=== PATIENT | female | born 1960 | race Caucasian/White ===

== ENCOUNTER → 2019-01-15 | Day surgery (SDC) | payer OTHER ==
[~2019-01-15] MED LIST: PROTECT PLUS S1 EACH PO; SYNTHROID50 MCG PO; TAMOXIFEN CITRA10 MG PO; ULTRACET PO; VITAMIN D2000 UNIT PO
== END | disposition home or self-care (01) ==
LOC: ADM 01-10 13:45 → CIR.AMB 08:45
DX: N72 Inflammatory disease of cervix uteri (principal)

== ENCOUNTER 2020-02-18 06:55 | Day surgery (SDC) | payer OTHER ==
[2020-02-18] MEDS ORDERED: TYLENOL325 MG PO (10:00)
== END 2020-02-18 12:20 | disposition home or self-care (01) ==
LOC: CIR.AMB 06:55 → ADM 08:45 → CIR.AMB 12:20 → ADM 12:30
PROVIDERS: ATTEND Obstetrics & Gynecology Gynecology
DX: N84.0 Polyp of corpus uteri (principal)